=== PATIENT | male | born 1985 | race Two or more races ===

== ENCOUNTER 2018-12-02 16:20 | Inpatient (IN) | payer MEDICAID ==
[~2018-12-02] VITALS: Ht 185.4 cm; Wt 70.8 kg
[2018-12-02 16:45] VITALS: BP 113/73
[2018-12-02] MEDS ORDERED: ALBUTEROL SULFATE 2.5 MG/0.5 ML NEB SOLUTION NEB PRN (17:45)
[2018-12-02] MEDS ORDERED: LACTULOSE 20 GM/30 ML SOLUTION UDCUP PO PRN (17:45)
[2018-12-02] MEDS ORDERED: ACETAMINOPHEN 500 MG TABLET PO PRN (17:45)
[2018-12-02] MEDS ORDERED: IBUPROFEN 600 MG TABLET PO PRN (17:45)
[2018-12-02] MEDS ORDERED: OxyCODONE HCL 5 MG IR TABLET PO PRN (17:45)
[2018-12-02] MEDS ORDERED: PNEUMOCOCCAL VACCINE POLYVALENT 0.5 ML VIAL [PPSV23] IM ONE (18:00)
[2018-12-02] MEDS ORDERED: INFLUENZA VIRUS VACCINE QVS 2019-20 (3YR+)/PF 60 MCG/0.5 ML SYRINGE IM ONE (18:00)
[2018-12-02] MEDS: HEPARIN SODIUM,PORCINE 5,000 UNITS/ML VIAL SQ SCH (20:30)
[2018-12-02] MEDS: QUEtiapine FUMARATE 25 MG TABLET PO SCH (20:31)
[2018-12-02] MEDS: DOCUSATE SODIUM 100 MG CAPSULE PO SCH (20:31)
[2018-12-03 06:00] VITALS: BP 110/56
[2018-12-03 06:18] LABS: BASOPHILS % (AUTO) 0.5 % (0.0-2.0); HEMATOCRIT 34.6 % (41-53); LYMPHOCYTES # (AUTO) 1.3 K/uL (1.0-4.8); LYMPHOCYTES % (AUTO) 21.8 % (22.0-44.0); MEAN CORPUSCULAR HEMOGLOBIN 31.7 pg (26.0-34.0); MEAN CORPUSCULAR HGB CONC 34.7 G/dL (31.0-37.0); MEAN CORPUSCULAR VOLUME 91 fL (80-100); MONOCYTES # (AUTO) 0.5 K/uL (0.1-1.0); MONOCYTES % (AUTO) 9.3 % (2.0-9.0); NEUTROPHILS # (AUTO) 3.9 K/uL (1.8-7.7); NEUTROPHILS % (AUTO) 67.4 % (40.0-70.0); PLATELET COUNT (AUTO) 211 K/uL (150-450); RED CELL DISTRIBUTION WIDTH 14.8 % (11.5-14.5)
[2018-12-03 06:32] LABS: ALANINE AMINOTRANSFERASE 55 U/L (12-78); ALBUMIN 3.2 g/dL (3.4-5.0); ALKALINE PHOSPHATASE 148 U/L (46-116); ANION GAP 4 mmol/L (8-16); ASPARTATE AMINOTRANSFERASE 31 U/L (15-37); BILIRUBIN,TOTAL 0.5 mg/dL (0.1-1.0); CALCIUM, TOTAL 9.3 mg/dL (8.8-10.5); CARBON DIOXIDE 31 mmol/L (22-29); CHLORIDE 101 mmol/L (98-107); CREATININE 0.89 mg/dL (0.60-1.30); GLOMERULAR FILTR. RATE CALC > 60 mL/min (>60); GLUCOSE,RANDOM 89 mg/dL (70-110); POTASSIUM 4.4 mmol/L (3.5-5.1); SODIUM SERUM 136 mmol/L (136-145); TOTAL PROTEIN, SERUM 7.2 g/dL (6.4-8.2); UREA NITROGEN, BLOOD 5 mg/dL (7-18)
[2018-12-03 07:25] VITALS: BP 98/62
[2018-12-03] MEDS: DOCUSATE SODIUM 100 MG CAPSULE PO SCH ×2 (08:42→21:03)
[2018-12-03] MEDS: HEPARIN SODIUM,PORCINE 5,000 UNITS/ML VIAL SQ SCH ×3 (08:42→21:03)
[2018-12-03] MEDS ORDERED: SODIUM CHLORIDE 0.9% 1,000 ML IV ONE (15:44)
[2018-12-03 16:48] VITALS: BP 106/67
[2018-12-03] MEDS: QUEtiapine FUMARATE 25 MG TABLET PO SCH (21:02)
[2018-12-04 05:07] VITALS: BP 101/69
[2018-12-04 08:16] VITALS: BP 118/61
[2018-12-04] MEDS: HEPARIN SODIUM,PORCINE 5,000 UNITS/ML VIAL SQ SCH ×3 (08:31→20:26)
[2018-12-04] MEDS: DOCUSATE SODIUM 100 MG CAPSULE PO SCH ×2 (09:00→20:26)
[2018-12-04] MEDS: MUPIROCIN CALCIUM 2% 22 GM OINTMENT NASAL SCH ×2 (13:45→20:27)
[2018-12-04 16:07] VITALS: BP 107/68
[2018-12-04] MEDS: QUEtiapine FUMARATE 25 MG TABLET PO SCH (20:26)
[2018-12-05 04:59] VITALS: BP 111/68
[2018-12-05 07:30] VITALS: BP 106/83
[2018-12-05] MEDS: DOCUSATE SODIUM 100 MG CAPSULE PO SCH ×2 (08:51→20:24)
[2018-12-05] MEDS: HEPARIN SODIUM,PORCINE 5,000 UNITS/ML VIAL SQ SCH ×3 (08:53→20:23)
[2018-12-05] MEDS: MUPIROCIN CALCIUM 2% 22 GM OINTMENT NASAL SCH ×2 (08:53→20:24)
[2018-12-05 16:00] VITALS: BP 110/75
[2018-12-05] MEDS: QUEtiapine FUMARATE 25 MG TABLET PO SCH (20:23)
[2018-12-06 04:32] VITALS: BP 103/71
[2018-12-06 08:00] VITALS: BP 107/65
[2018-12-06] MEDS: MUPIROCIN CALCIUM 2% 22 GM OINTMENT NASAL SCH ×2 (09:23→20:13)
[2018-12-06] MEDS: HEPARIN SODIUM,PORCINE 5,000 UNITS/ML VIAL SQ SCH ×3 (09:24→20:13)
[2018-12-06] MEDS: DOCUSATE SODIUM 100 MG CAPSULE PO SCH ×2 (09:24→20:13)
[2018-12-06 15:00] VITALS: BP 93/45
[2018-12-06] MEDS: MELATONIN 5 MG TABLET PO SCH (20:13)
[2018-12-07 08:45] VITALS: BP 113/82
[2018-12-07] MEDS: HEPARIN SODIUM,PORCINE 5,000 UNITS/ML VIAL SQ SCH ×3 (09:24→20:58)
[2018-12-07] MEDS: DOCUSATE SODIUM 100 MG CAPSULE PO SCH ×2 (09:24→20:58)
[2018-12-07] MEDS: MUPIROCIN CALCIUM 2% 22 GM OINTMENT NASAL SCH ×2 (09:25→20:58)
[2018-12-07 15:10] VITALS: BP 110/70
[2018-12-07 17:30] VITALS: BP 122/77
[2018-12-07 18:15] VITALS: BP 110/73
[2018-12-07] MEDS ORDERED: LORazepam 0.5 MG TABLET PO PRN (20:15)
[2018-12-07] MEDS: MELATONIN 5 MG TABLET PO SCH (20:58)
[2018-12-07 21:16] VITALS: BP 109/70
[2018-12-08 02:20] VITALS: BP 117/51
[2018-12-08 07:14] LABS: HEMATOCRIT 36.6 % (41-53); HEMOGLOBIN 12.5 g/dL (13.5-17.5); MEAN CORPUSCULAR HEMOGLOBIN 31.3 pg (26.0-34.0); MEAN CORPUSCULAR HGB CONC 34.2 G/dL (31.0-37.0); MEAN CORPUSCULAR VOLUME 92 fL (80-100); PLATELET COUNT (AUTO) 279 K/uL (150-450); RED BLOOD CELL COUNT(AUTO) 3.99 MIL/uL (4.50-5.90); RED CELL DISTRIBUTION WIDTH 14.4 % (11.5-14.5)
[2018-12-08 07:30] LABS: ANION GAP 7 mmol/L (8-16); CALCIUM, TOTAL 9.2 mg/dL (8.8-10.5); CARBON DIOXIDE 31 mmol/L (22-29); CHLORIDE 100 mmol/L (98-107); CREATININE 0.72 mg/dL (0.60-1.30); GLOMERULAR FILTR. RATE CALC > 60 mL/min (>60); GLUCOSE,RANDOM 83 mg/dL (70-110); SODIUM SERUM 138 mmol/L (136-145); UREA NITROGEN, BLOOD 10 mg/dL (7-18)
[2018-12-08 07:31] VITALS: BP 115/70
[2018-12-08 08:03] LABS: BAND NEUTROPHILS % (MANUAL) 2 % (0-5); EOSINOPHILS % (MANUAL) 2 % (1-6); LYMPHOCYTES % (MANUAL) 21 % (22-44); MONOCYTES % (MANUAL) 7 % (2-9); SEGMENTED NEUTROPHILS % 68 % (40-70)
[2018-12-08] MEDS: HEPARIN SODIUM,PORCINE 5,000 UNITS/ML VIAL SQ SCH ×3 (08:43→21:13)
[2018-12-08] MEDS: DOCUSATE SODIUM 250 MG CAPSULE PO SCH ×2 (08:44→21:13)
[2018-12-08] MEDS: MUPIROCIN CALCIUM 2% 22 GM OINTMENT NASAL SCH ×2 (08:44→21:14)
[2018-12-08 09:40] VITALS: BP 92/59
[2018-12-08] MEDS ORDERED: IOVERSOL 350 MG/ML 100 ML VIAL ONE (10:45)
[2018-12-08 15:31] VITALS: BP 104/70
[2018-12-08] MEDS: MELATONIN 5 MG TABLET PO SCH (21:00)
[2018-12-08] MEDS: OMEPRAZOLE 20 MG CAPSULE PO SCH (21:13)
[2018-12-08 21:21] VITALS: BP 102/62
[2018-12-08] MEDS ORDERED: 0.9% SODIUM CHLORIDE 5 ML NEB SOLUTION NEB ONE (21:26)
[2018-12-08] MEDS: LORazepam 0.5 MG TABLET PO PRN (21:43)
[2018-12-09 05:00] VITALS: BP 93/41
[2018-12-09 09:00] VITALS: BP 108/70
[2018-12-09] MEDS: HEPARIN SODIUM,PORCINE 5,000 UNITS/ML VIAL SQ SCH ×3 (09:11→20:23)
[2018-12-09] MEDS: OMEPRAZOLE 20 MG CAPSULE PO SCH ×2 (09:12→20:24)
[2018-12-09] MEDS: DOCUSATE SODIUM 250 MG CAPSULE PO SCH ×2 (09:12→20:24)
[2018-12-09] MEDS: MUPIROCIN CALCIUM 2% 22 GM OINTMENT NASAL SCH (09:12)
[2018-12-09 15:47] VITALS: BP 109/70
[2018-12-09] MEDS: MELATONIN 5 MG TABLET PO SCH (20:24)
[2018-12-10 08:45] VITALS: BP 116/65
[2018-12-10] MEDS: DOCUSATE SODIUM 250 MG CAPSULE PO SCH (09:05)
[2018-12-10] MEDS: HEPARIN SODIUM,PORCINE 5,000 UNITS/ML VIAL SQ SCH ×3 (09:05→21:03)
[2018-12-10] MEDS: OMEPRAZOLE 20 MG CAPSULE PO SCH ×2 (09:06→21:03)
[2018-12-10 16:46] VITALS: BP 130/77
[2018-12-10] MEDS: MELATONIN 5 MG TABLET PO SCH (21:00)
[2018-12-11 07:30] VITALS: BP_SYST 105; BP_SYST 117; BP_DIAS 66; BP_DIAS 69
[2018-12-11] MEDS: HEPARIN SODIUM,PORCINE 5,000 UNITS/ML VIAL SQ SCH ×3 (08:42→20:48)
[2018-12-11] MEDS: OMEPRAZOLE 20 MG CAPSULE PO SCH ×2 (08:42→20:49)
[2018-12-11] MEDS: POLYETHYLENE GLYCOL 3350 17 GM PACKET PO SCH (08:42)
[2018-12-11 09:02] LABS: MAGNESIUM 1.7 mg/dL (1.80-2.40); PHOSPHORUS 4.1 mg/dL (2.5-4.9)
[2018-12-11 16:32] VITALS: BP 120/76
[2018-12-11] MEDS: MELATONIN 5 MG TABLET PO SCH (20:42)
[2018-12-11 20:54] VITALS: BP 115/71
[2018-12-12] MEDS: POLYETHYLENE GLYCOL 3350 17 GM PACKET PO SCH (08:31)
[2018-12-12] MEDS: HEPARIN SODIUM,PORCINE 5,000 UNITS/ML VIAL SQ SCH ×3 (08:31→20:47)
[2018-12-12] MEDS: OMEPRAZOLE 20 MG CAPSULE PO SCH ×2 (08:32→20:47)
[2018-12-12 10:14] VITALS: BP 120/73
[2018-12-12 15:30] VITALS: BP 114/61
[2018-12-12] MEDS: MELATONIN 5 MG TABLET PO SCH (20:47)
[2018-12-12] MEDS ORDERED: MELATONIN 5 MG TABLET PO PRN (21:15)
[2018-12-13 07:55] VITALS: BP 117/72
[2018-12-13] MEDS: POLYETHYLENE GLYCOL 3350 17 GM PACKET PO SCH (09:29)
[2018-12-13] MEDS: HEPARIN SODIUM,PORCINE 5,000 UNITS/ML VIAL SQ SCH ×3 (09:30→22:06)
[2018-12-13] MEDS: OMEPRAZOLE 20 MG CAPSULE PO SCH ×2 (09:30→22:04)
[2018-12-13 16:17] VITALS: BP 110/64
[2018-12-13 23:00] VITALS: BP 105/58
[2018-12-14] MEDS: HEPARIN SODIUM,PORCINE 5,000 UNITS/ML VIAL SQ SCH ×3 (07:29→20:55)
[2018-12-14] MEDS: OMEPRAZOLE 20 MG CAPSULE PO SCH ×2 (07:29→20:55)
[2018-12-14] MEDS: POLYETHYLENE GLYCOL 3350 17 GM PACKET PO SCH (07:29)
[2018-12-14 11:11] VITALS: BP 108/68
[2018-12-14 15:47] VITALS: BP 107/57
[2018-12-14 23:35] VITALS: BP 100/59
[2018-12-15 08:15] VITALS: BP 110/63
[2018-12-15] MEDS: OMEPRAZOLE 20 MG CAPSULE PO SCH ×2 (08:56→20:45)
[2018-12-15] MEDS: POLYETHYLENE GLYCOL 3350 17 GM PACKET PO SCH (08:56)
[2018-12-15] MEDS: HEPARIN SODIUM,PORCINE 5,000 UNITS/ML VIAL SQ SCH ×3 (08:57→20:45)
[2018-12-15 16:47] VITALS: BP 114/66
[2018-12-15 23:05] VITALS: BP 102/54
[2018-12-16 07:58] VITALS: BP 114/64
[2018-12-16] MEDS: POLYETHYLENE GLYCOL 3350 17 GM PACKET PO SCH (08:29)
[2018-12-16] MEDS: OMEPRAZOLE 20 MG CAPSULE PO SCH ×2 (08:29→21:14)
[2018-12-16] MEDS: HEPARIN SODIUM,PORCINE 5,000 UNITS/ML VIAL SQ SCH ×3 (08:30→21:14)
[2018-12-16 15:45] VITALS: BP 126/76
[2018-12-16 23:00] VITALS: BP 108/54
[2018-12-17] MEDS: OMEPRAZOLE 20 MG CAPSULE PO SCH ×2 (07:44→20:35)
[2018-12-17] MEDS: POLYETHYLENE GLYCOL 3350 17 GM PACKET PO SCH (07:44)
[2018-12-17] MEDS: HEPARIN SODIUM,PORCINE 5,000 UNITS/ML VIAL SQ SCH ×3 (07:45→20:35)
[2018-12-17 09:00] VITALS: BP 109/62
[2018-12-17 16:50] VITALS: BP 125/75
[2018-12-17 23:00] VITALS: BP 112/62
[2018-12-18 07:30] VITALS: BP 102/67
[2018-12-18] MEDS: POLYETHYLENE GLYCOL 3350 17 GM PACKET PO SCH (08:22)
[2018-12-18] MEDS: OMEPRAZOLE 20 MG CAPSULE PO SCH ×2 (08:22→20:20)
[2018-12-18] MEDS: HEPARIN SODIUM,PORCINE 5,000 UNITS/ML VIAL SQ SCH ×3 (08:23→20:20)
[2018-12-18 16:05] VITALS: BP 103/62
[2018-12-18 20:18] VITALS: BP 110/61
[2018-12-18 23:00] VITALS: BP 115/58
[2018-12-19 07:20] VITALS: BP 115/63
[2018-12-19] MEDS ORDERED: POLY17PO PO (08:24)
[2018-12-19] MEDS ORDERED: OMEP20 PO (08:24)
[2018-12-19] MEDS: POLYETHYLENE GLYCOL 3350 17 GM PACKET PO SCH (08:31)
[2018-12-19] MEDS: HEPARIN SODIUM,PORCINE 5,000 UNITS/ML VIAL SQ SCH ×3 (08:31→20:05)
[2018-12-19] MEDS: OMEPRAZOLE 20 MG CAPSULE PO SCH ×2 (08:31→20:05)
[2018-12-19 16:19] VITALS: BP 116/75
[2018-12-19 23:00] VITALS: BP 112/60
[2018-12-20 07:20] VITALS: BP 114/74
[2018-12-20] MEDS: LORazepam 0.5 MG TABLET PO PRN (07:43)
[2018-12-20] MEDS: HEPARIN SODIUM,PORCINE 5,000 UNITS/ML VIAL SQ SCH ×3 (08:22→21:14)
[2018-12-20] MEDS: POLYETHYLENE GLYCOL 3350 17 GM PACKET PO SCH (08:22)
[2018-12-20] MEDS: OMEPRAZOLE 20 MG CAPSULE PO SCH ×2 (08:22→21:14)
[2018-12-20 14:15] VITALS: BP 93/71
[2018-12-20 17:33] VITALS: BP 108/69
[2018-12-21 08:00] VITALS: BP 117/77
[2018-12-21] MEDS: POLYETHYLENE GLYCOL 3350 17 GM PACKET PO SCH (08:46)
[2018-12-21] MEDS: HEPARIN SODIUM,PORCINE 5,000 UNITS/ML VIAL SQ SCH (08:47)
[2018-12-21] MEDS: OMEPRAZOLE 20 MG CAPSULE PO SCH (08:47)
== END 2018-12-21 10:22 | disposition home or self-care (01) | DRG 930 ==
LOC: 2WR 16:20
DX: S06.6X0A Traumatic subarachnoid hemorrhage without loss of consciousness, initial encounter (principal); S32.82XA Multiple fractures of pelvis without disruption of pelvic ring, initial encounter for closed fracture; S12.391A Other nondisplaced fracture of fourth cervical vertebra, initial encounter for closed fracture; S02.401A Maxillary fracture, unspecified side, initial encounter for closed fracture; S02.85XA Fracture of orbit, unspecified, initial encounter for closed fracture; S02.2XXA Fracture of nasal bones, initial encounter for closed fracture; S02.19XA Other fracture of base of skull, initial encounter for closed fracture; S42.001A Fracture of unspecified part of right clavicle, initial encounter for closed fracture; G47.00 Insomnia, unspecified; F41.9 Anxiety disorder, unspecified; R32 Unspecified urinary incontinence; K59.03 Drug induced constipation; T40.2X5A Adverse effect of other opioids, initial encounter; Y92.89 Other specified places as the place of occurrence of the external cause
CPT/HCPCS: 70450; 71275; 83735; 84100; 85007; 85379; 87081; 92507; 92523; 92526; 93005; 93970; 94640; 97110; 97112; 97116; 97163; 97167; 97530; 97535; 99366; G0238; J1644; J7030